=== PATIENT | male | born 1990 | race Caucasian/White ===

== ENCOUNTER 2018-02-28 12:39 | Emergency (ER) | payer OTHER ==
[~2018-02-28] VITALS: Ht 185.4 cm; Wt 76.0 kg
[2018-02-28] MEDS ORDERED: MOTRIN800 MG PO (13:54)
[2018-02-28] MEDS ORDERED: BACTRIM,SEPT1 TABLET PO (13:54)
[2018-02-28 14:16] VITALS: BP 122/76
== END 2018-02-28 14:19 | disposition home or self-care (01) ==
LOC: EME 12:39
PROC: 0H9QXZZ Drainage of Finger Nail, External Approach (ICD-10-PCS; principal; 2018-02-28)
DX: L03.011 Cellulitis of right finger (principal); Z88.0 Allergy status to penicillin; F17.200 Nicotine dependence, unspecified, uncomplicated
CPT/HCPCS: 99281; 99284

== ENCOUNTER 2018-03-14 14:39 | Emergency (ER) | payer OTHER ==
[~2018-03-14] VITALS: Ht 185.4 cm; Wt 76.9 kg
[~2018-03-14 14:39] MED LIST: BACTRIM,SEPT1 TABLET PO; MOTRIN800 MG PO
[2018-03-14] MEDS ORDERED: VIBRAMYCIN100 MG PO (15:42)
[2018-03-14 15:58] VITALS: BP 122/60
== END 2018-03-14 15:58 | disposition home or self-care (01) ==
LOC: EME 14:39
DX: L03.211 Cellulitis of face (principal); Z88.0 Allergy status to penicillin
CPT/HCPCS: 99281; 99283